=== PATIENT | male | born 1945 ===

== ENCOUNTER 2018-12-02 07:34 | Emergency (ER) | payer MEDICAID ==
[2018-12-02] MEDS ORDERED: Sodium Chloride 0.9% 1,000 ML IV ONE (08:08)
[2018-12-02 08:31] LABS: BASO % 0.4 % (0.0-2.0); EOS # 0.1 K/uL (0.0-0.7); EOS % 2.3 % (0.0-4.0); HEMOGLOBIN 16.7 g/dL (12.0-18.0); LYMPH # 0.9 K/uL (1.0-4.3); MEAN CELL VOLUME 88.4 fL (80.0-94.0); MEAN CORPUSCULAR HEMOGLOBIN 29.3 pg (27.0-31.0); MEAN CORPUSCULAR HGB CONC 33.1 g/dL (33.0-37.0); MEAN PLATELET VOLUME 9.6 fL (7.2-11.7); MONO # 0.5 K/uL (0.0-0.8); MONO % 13.2 % (0.0-10.0); NEUT # 2.3 K/uL (1.8-7.0); NEUT % 60.1 % (50.0-75.0); NRBC % 0.1 % (0.0-2.0); RBC 5.7 Mil/uL (4.40-5.90); RED CELL DISTRIBUTION WIDTH 14.2 % (11.5-14.5); WHITE BLOOD COUNT 3.8 K/uL (4.8-10.8)
[2018-12-02 08:33] LABS: SQUAMOUS EPITHIAL < 1 /hpf (0-5); URINE BACTERIA OCC (<OCC); URINE BILIRUBIN NEGATIVE (NEGATIVE); URINE BLOOD NEGATIVE (NEGATIVE); URINE CLARITY Hazy (Clear); URINE COLOR Amber (YELLOW); URINE GLUCOSE (UA) NORMAL (Normal); URINE HYALINE CAST 0-2 /lpf (0-2); URINE LEUKOCYTE ESTERASE NEG Leu/uL (Negative); URINE PROTEIN 2+ mg/dL (NEGATIVE); URINE UROBILINOGEN NORMAL mg/dL (0.2-1.0)
[2018-12-02 08:40] LABS: ALB/GLOB RATIO 1.2 (1.0-2.1); ALBUMIN 4.6 g/dL (3.5-5.0); ALT/SGPT 38 U/L (21-72); AST/SGOT 35 U/L (17-59); BLOOD UREA NITROGEN 20 mg/dL (9-20); CALCIUM 8.6 mg/dl (8.6-10.4); GFR NON-AFRICAN AMERICAN > 60; LIPASE 147 U/L (23-300)
--- NOTE | 2018-12-02 08:57 | C.PDOC ---
History Of Present Illness 73 y/o male presents to the ER complaining of multiple episodes of diarrhea which began at 4 am yesterday. Patient states that he is taking Kaopectate and noted dark stools. Patient denies having fever,chills, nausea, vomiting, abdom inal pain, and blood in stool. Time Seen by Provider: 12/02/18 07:38 Chief Complaint (Nursing): GI Problem History Per: Patient History/Exam Limitations: no limitations Onset/Duration Of Symptoms: Days Current Symptoms Are (Timing): Still Present Severity: Moderate Pain Scale Rating Of: 0 Additional History Per: Patient Past Medical History Reviewed: Historical Data, Nursing Documentation, Vital Signs Vital Signs: Last Vital Signs Temp 98.3 F 12/02/18 07:43 Pulse 94 H 12/02/18 07:43 Resp 16 12/02/18 07:43 BP 131/97 H 12/02/18 07:43 Pulse Ox 98 12/02/18 07:43 - Medical History PMH: Anxiety, Benign Prostatic Hyperplasia Surgical History: No Surg Hx Other Surgeries: Hx of surgeries Family History: States: No Known Family Hx - Social History Hx Alcohol Use: No Hx Substance Use: No Review Of Systems Except As Marked, All Systems Reviewed And Found Negative. Constitutional: Negative for: Fever, Chills Gastrointestinal: Positive for: Diarrhea. Negative for: Nausea, Vomiting, Abdominal Pain Physical Exam - Physical Exam Appears: Non-toxic, No Acute Distress Skin: Normal Color, Warm, Dry Head: Atraumatic, Normacephalic Eye(s): bilateral: Normal Inspection Nose: Normal Oral Mucosa: Moist Neck: Supple Chest: Symmetrical Cardiovascular: Rhythm Regular Respiratory: Normal Breath Sounds, No Rales, No Rhonchi, No Wheezing Gastrointestinal/Abdominal: Normal Exam, Soft, No Tenderness, No Guarding, No Rebound Extremity: Normal ROM Neurological/Psych: Oriented x3, Normal Speech ED Course And Treatment - Laboratory Results Result Diagrams: 12/02/18 08:23 12/02/18 08:23 Lab Results: Total Bilirubin 1.6 mg/dL (0.2-1.3) H 12/02/18 08:23 AST 35 U/L (17-59) 12/02/18 08:23 ALT 38 U/L (21-72) 12/02/18 08:23 Alkaline Phosphatase 89 U/L (38-126) 12/02/18 08:23 Total Protein 8.4 g/dL (6.3-8.3) H 12/02/18 08:23 Albumin 4.6 g/dL (3.5-5.0) 12/02/18 08:23 Globulin 3.7 gm/dL (2.2-3.9) 12/02/18 08:23 Albumin/Globulin Ratio 1.2 (1.0-2.1) 12/02/18 08:23 Lipase 147 U/L (23-300) 12/02/18 08:23 Urine Color Donna (YELLOW) 12/02/18 08:23 Urine Clarity Hazy (Clear) 12/02/18 08:23 Urine pH 5.0 (5.0-8.0) 12/02/18 08:23 Ur Specific [place] 1.028 (1.003-1.030) 12/02/18 08:23 Urine Protein 2+ mg/dL (NEGATIVE) H 12/02/18 08:23 Urine Glucose (UA) Normal mg/dL (Normal) 12/02/18 08:23 Urine Ketones Negative mg/dL (NEGATIVE) 12/02/18 08:23 Urine Blood Negative (NEGATIVE) 12/02/18 08:23 Urine Nitrate Negative (NEGATIVE) 12/02/18 08:23 Urine Bilirubin Negative (NEGATIVE) 12/02/18 08:23 Urine Urobilinogen Normal mg/dL (0.2-1.0) 12/02/18 08:23 Ur Leukocyte Esterase Neg Deepak/uL (Negative) 12/02/18 08:23 Urine WBC (Auto) 2 /hpf (0-5) 12/02/18 08:23 Urine RBC (Auto) 4 /hpf (0-3) H 12/02/18 08:23 Ur Squamous Epith Cells < 1 /hpf (0-5) 12/02/18 08:23 Urine Bacteria Occ (<OCC) H 12/02/18 08:23 Hyaline Casts 0-2 /lpf (0-2) 12/02/18 08:23 Lab Interpretation: Normal O2 Sat by Pulse Oximetry: 98 (RA) Pulse Ox Interpretation: Normal Progress Note: Treated with IVF NSS. On re-evaluation abdomen soft non-tender, in no distress Reassessment Condition: Improved Medical Decision Making Medical Decision Making: Plan: --Labs --UA --IV Fluids Disposition Counseled Patient/Family Regarding: Studies Performed, Diagnosis, Need For Followup - Disposition Referrals: Sun Germain MD [Medical Doctor] - Disposition: HOME/ ROUTINE Disposition Time: 09:15 Condition: STABLE Additional Instructions: Return to ED if any increase symptoms Forms: [employer] (Argentine) Print Language: IRISH - POA Present On Arrival: None - Clinical Impression Clinical Impression: Diarrhea - 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 - Scribe Statement The provider has reviewed the documentation as recorded by the Scribe Glynn Gibbs Provider Attestation All medical record entries made by the Scribe were at my direction and personally dictated by me. I have reviewed the chart and agree that the record accurately reflects my personal performance of the history, physical exam, medical decision making, and the department course for this patient. I have also personally directed, reviewed, and agree with the discharge instructions and disposition.
[2018-12-02 10:29] VITALS: BP 137/81; PULSE 87; RESP 16; TEMP 98.3; O2SAT 98
== END 2018-12-02 10:06 | disposition home or self-care (01) ==
LOC: C.ER 07:34
DX: R19.7 Diarrhea, unspecified (principal)
CPT/HCPCS: 80053; 81001; 83690; 85025; 96360; 99284; J7030

== ENCOUNTER 2019-01-18 06:29 | Emergency (ER) | payer MEDICAID ==
[2019-01-18] MEDS ORDERED: Sodium Chloride 0.9% 500 ML IV ONE (07:34)
[2019-01-18 07:53] LABS: BASO % 0.7 % (0.0-2.0); EOS # 0.2 K/uL (0.0-0.7); EOS % 5.6 % (0.0-4.0); LYMPH # 1.1 K/uL (1.0-4.3); LYMPH % 26.7 % (20.0-40.0); MEAN CELL VOLUME 87.8 fL (80.0-94.0); MEAN CORPUSCULAR HEMOGLOBIN 28.9 pg (27.0-31.0); MEAN PLATELET VOLUME 9.5 fL (7.2-11.7); MONO # 0.3 K/uL (0.0-0.8); MONO % 8.8 % (0.0-10.0); NEUT # 2.3 K/uL (1.8-7.0); NEUT % 58.2 % (50.0-75.0); NRBC % 0.1 % (0.0-2.0); RBC 4.91 Mil/uL (4.40-5.90); RED CELL DISTRIBUTION WIDTH 14.1 % (11.5-14.5)
[2019-01-18 07:58] LABS: HEMOGLOBIN 14.2 g/dL (12.0-18.0)
--- NOTE | 2019-01-18 07:59 | C.PDOC ---
History Of Present Illness 73 y/o male presents to the ED for evaluation of dizziness, developed at approximately 5:30am this morning. Patient states while walking around in his apartment he suddenly felt dizzy. He describes the dizziness as items in the apartment moving around him, which lasted for 10 minutes. Patient also complains of generalized weakness but denies any focal weakness, visual changes, slurred speech, facial droop, chest pain, SOB, palpitations, or prior hx of similar symptoms. Time Seen by Provider: 01/18/19 06:59 Chief Complaint (Nursing): Dizziness/Lightheaded History Per: Patient History/Exam Limitations: no limitations Onset/Duration Of Symptoms: Mins (x 10) Current Symptoms Are (Timing): Gone Activity At Onset Of Symptoms: Walking Seizure Or Post-ictal Symptoms: None Fall Associated With With Symptoms: No Past Medical History Reviewed: Historical Data, Nursing Documentation, Vital Signs Vital Signs: Last Vital Signs Temp 98.0 F 01/18/19 06:39 Pulse 60 01/18/19 06:39 Resp 20 01/18/19 06:39 BP 142/67 01/18/19 06:39 Pulse Ox 98 01/18/19 06:39 - Medical History PMH: Anxiety, Arthritis, Benign Prostatic Hyperplasia Family History: States: No Known Family Hx - Social History Hx Alcohol Use: Yes Hx Substance Use: No - Immunization History Hx Tetanus Toxoid Vaccination: Yes Hx Influenza Vaccination: Yes Hx Pneumococcal Vaccination: Yes Review Of Systems Constitutional: Positive for: Weakness (generalized). Negative for: Fever Eyes: Negative for: Vision Change Cardiovascular: Negative for: Chest Pain, Palpitations Respiratory: Negative for: Shortness of Breath Gastrointestinal: Negative for: Nausea, Vomiting, Diarrhea Musculoskeletal: Negative for: Neck Pain, Back Pain Neurological: Positive for: Dizziness. Negative for: Weakness, Numbness, Change in Speech Physical Exam - Physical Exam Appears: Non-toxic, No Acute Distress Skin: Normal Color, Warm, Dry Head: Atraumatic, Normacephalic Eye(s): bilateral: Normal Inspection, PERRL, EOMI Nose: Normal Oral Mucosa: Moist Neck: Normal ROM, Supple Chest: Symmetrical Cardiovascular: Rhythm Regular, No Murmur Respiratory: Normal Breath Sounds, No Rales, No Rhonchi, No Wheezing Gastrointestinal/Abdominal: Soft, No Tenderness, No Distention Extremity: Bilateral: Atraumatic, Normal Color And Temperature, Normal ROM Neurological/Psych: Oriented x3, Normal Speech, Normal Cognition, Normal Cranial Nerves, Normal Motor, Normal Sensation, Other (No focal deficits) ED Course And Treatment - Laboratory Results Result Diagrams: 01/18/19 07:35 01/18/19 07:35 ECG: Interpreted By Me, Viewed By Me ECG Rhythm: Sinus Bradycardia Interpretation Of ECG: Normal axis, No acute ST/T wave changes Rate From EC O2 Sat by Pulse Oximetry: 98 (RA) Pulse Ox Interpretation: Normal - CT Scan/US Head CT Other Rad Studies (CT/US): Read By Radiologist, Radiology Report Reviewed CT/US Interpretation: Accession No. : [id number]. Patient Name / ID : SYLVIE AYALA / [id number]. Exam Date : 01/18/2019 07:46:00 ( Approved ). Study Comment : Sex / Age : M / 73Y. Creator : Castro Sands. Dictator : Fransisco Larsen MD. Costume Cutter : Irb Compliance Coordinator : Fransisco Larsen MD. Approver2 : Report Date : 01/18/2019 08:22:48. My Comment : . Date of service: 01/18/2019. PROCEDURE: CT HEAD WITHOUT CONTRAST. HISTORY: DIZZINESS. COMPARISON: None available. TECHNIQUE: Axial computed tomography images were obtained through the head/brain without intravenous contrast. Radiation dose: Total exam DLP = 1044.14 mGy-cm. This CT exam was performed using one or more of the following dose reduction techniques: Automated exposure control, adjustment of the mA and/or kV according to patient size, and/or use of iterative reconstruction technique. FINDINGS: HEMORRHAGE: No intracranial hemorrhage. BRAIN: No mass effect or edema. Scattered focal lucencies in the subcortical and periventricular white matter suggestive for chronic microvascular ischemic change. Punctate bilateral basal ganglia calcifications. VENTRICLES: Unremarkable. No hydrocephalus. CALVARIUM: Unremarkable. PARANASAL SINUSES: Moderate mucosal thickening of the sphenoid sinus and ethmoid air cells. MASTOID AIR CELLS: Unremarkable as visualized. No inflammatory changes. OTHER FINDINGS: Soft tissue swelling overlying the posterior occipital cranium. Intracranial arterial calcifications. IMPRESSION: No acute intracranial abnormality. Chronic microvascular ischemic changes. Intracranial arterial calcifications. Sinus mucosal disease. If symptoms persists, consider correlation with MRI. Progress Note: Blood work, UA, and CXR ordered. Head CT ordered. Accucheck done, BS is 130. Patient given 500ml NS IV fluids. Imaging reviewed, CT shows no acute findings. Labs are WNL. Patient counseled regarding findings and follow up instructions. Will d/c patient home on Meclizine. Disposition Counseled Patient/Family Regarding: Studies Performed, Diagnosis, Need For Followup, Rx Given - Disposition Referrals: Sun Germain MD [Medical Doctor] - Ramy Chavez MD [Staff Provider] - Rickey Veliz MD [Staff Provider] - Disposition: HOME/ ROUTINE Disposition Time: 09:20 Additional Instructions: FOLLOW UP WITH YOUR DOCTOR IN 1-2 DAYS USE MEDICATION NEEDED FOR YOUR DIZZINESS IF SYMTOMS REOCCUR, FOLLOW UP WITH SPECIALISTS RETURN TO EMERGENCY ROOM IF YOUR SYMPTOMS BECOME WORSE SEGUIR CON VALENTINE MDICO EN 1-2 WILSON UTILICE MEDICAMENTOS SEGN SEA NECESARIO PARA VALENTINE DIZZINESS SI LOS SNTOMAS RECURREN, SIGUE CON LOS ESPECIALISTAS VUELVA A LA BLANCA DE EMERGENCIA SI KEKE SNTOMAS SE HACEN PEOR Prescriptions: Meclizine [Meclizine*] 25 mg PO Q6 #15 tab Instructions: Vertigo (a Type of Dizziness) (DC) Forms: [employer] (Faroese) Print Language: DANISH - Clinical Impression Clinical Impression: Peripheral vertigo - Scribe Statement The provider has reviewed the documentation as recorded by the Delmiibaisha Kaufman Provider Attestation: All medical record entries made by the Delmiibaisha were at my direction and personally dictated by me. I have reviewed the chart and agree that the record accurately reflects my personal performance of the history, physical exam, medical decision making, and the department course for this patient. I have also personally directed, reviewed, and agree with the discharge instructions and disposition.
[2019-01-18 08:00] LABS: INR 1.1; PROTHROMBIN TIME 12.1 SECONDS (9.7-12.2)
[2019-01-18] MEDS ORDERED: Sodium Chloride 0.9% 1,000 ML ONE (08:01)
[2019-01-18 08:28] LABS: BLOOD UREA NITROGEN 13 mg/dL (9-20); GFR NON-AFRICAN AMERICAN > 60
[2019-01-18 08:29] LABS: ALB/GLOB RATIO 1.4 (1.0-2.1); ALBUMIN 3.8 g/dL (3.5-5.0); ALT/SGPT 26 U/L (21-72); AST/SGOT 25 U/L (17-59)
[2019-01-18 08:30] LABS: SQUAMOUS EPITHIAL 1 /hpf (0-5); URINE BACTERIA RARE (<OCC); URINE BILIRUBIN NEGATIVE (NEGATIVE); URINE BLOOD NEGATIVE (NEGATIVE); URINE CLARITY Clear (Clear); URINE COLOR Yellow (YELLOW); URINE GLUCOSE (UA) NORMAL (Normal); URINE LEUKOCYTE ESTERASE NEG Leu/uL (Negative); URINE PROTEIN NEGATIVE (NEGATIVE); URINE UROBILINOGEN NORMAL mg/dL (0.2-1.0)
[2019-01-18 08:37] LABS: CK-MB 0.73 ng/mL (0.0-3.38)
--- NOTE | 2019-01-18 08:37 | CT ---
Date of service: 01/18/2019 PROCEDURE: CT HEAD WITHOUT CONTRAST. HISTORY: DIZZINESS COMPARISON: None available. TECHNIQUE: Axial computed tomography images were obtained through the head/brain without intravenous contrast. Radiation dose: Total exam DLP = 1044.14 mGy-cm. This CT exam was performed using one or more of the following dose reduction techniques: Automated exposure control, adjustment of the mA and/or kV according to patient size, and/or use of iterative reconstruction technique. FINDINGS: HEMORRHAGE: No intracranial hemorrhage. BRAIN: No mass effect or edema. Scattered focal lucencies in the subcortical and periventricular white matter suggestive for chronic microvascular ischemic change. Punctate bilateral basal ganglia calcifications. VENTRICLES: Unremarkable. No hydrocephalus. CALVARIUM: Unremarkable. PARANASAL SINUSES: Moderate mucosal thickening of the sphenoid sinus and ethmoid air cells. MASTOID AIR CELLS: Unremarkable as visualized. No inflammatory changes. OTHER FINDINGS: Soft tissue swelling overlying the posterior occipital cranium. Intracranial arterial calcifications. IMPRESSION: No acute intracranial abnormality. Chronic microvascular ischemic changes. Intracranial arterial calcifications. Sinus mucosal disease. If symptoms persists, consider correlation with MRI.
[2019-01-18 09:19] VITALS: O2SAT 98
--- NOTE | 2019-01-18 09:23 | RAD ---
Date of service: 01/18/2019 PROCEDURE: CHEST RADIOGRAPH, 1 VIEW HISTORY: DIZZINESS COMPARISON: None available. FINDINGS: LUNGS: The lungs are well inflated and clear. PLEURA: No pneumothorax or pleural effusion. CARDIOVASCULAR: The heart is normal in size. No aortic atherosclerotic calcifications present. OSSEOUS STRUCTURES: Within normal limits for the patient's age. VISUALIZED UPPER ABDOMEN: Normal. OTHER FINDINGS: None. IMPRESSION: No active pulmonary disease.
[2019-01-18 09:51] VITALS: BP 160/76; PULSE 60; RESP 20; TEMP 97.4
--- NOTE | 2019-01-20 03:26 | CARD ---
APPROVED REPORT Date of service: 01/18/2019 EKG Measurement Heart [id number] <Conclusion> Sinus bradycardia Nonspecific T wave abnormality Abnormal ECG
== END 2019-01-18 09:51 | disposition home or self-care (01) ==
LOC: C.ER 06:29
DX: H81.399 Other peripheral vertigo, unspecified ear (principal); F41.9 Anxiety disorder, unspecified; N40.0 Benign prostatic hyperplasia without lower urinary tract symptoms
CPT/HCPCS: 70450; 71045; 80053; 81001; 82550; 82553; 82948; 84484; 85025; 85610; 85730; 96360; 99285; J7040